=== PATIENT | male | born 1950 | race Caucasian/White ===

== ENCOUNTER 2017-06-01 21:27 | Emergency (ER) | payer OTHER, MEDICAID ==
[~2017-06-01] VITALS: Ht 170.2 cm; Wt 95.3 kg
[2017-06-01] MEDS ORDERED: ALBUTEROL SULF 2.5 MG/0.5ML(0.5%) NEB SOLN NEB STA (21:43)
[2017-06-01] MEDS ORDERED: IPRATROPIUM BROM 0.5 MG/2.5ML INH SOL NEB ONE (21:45)
[2017-06-01 22:09] LABS: Basophils # (auto) 0.1 uL; Basophils % (auto) 0.8 % (0.0-2.0); CONDITION Y; DEFINITIVE SEE PRINTOUT; Eosinophils # (auto) 0.1 uL; Eosinophils % (auto) 0.6 % (0.0-7.0); Hematocrit 39.3 % (41.0-53.0); Hemoglobin 12.7 g/dL (13.5-17.5); Lymphocytes # (auto) 1.3 uL; Lymphocytes % (auto) 10.2 % (10.0-50.0); Mean Corpuscular Hgb Conc. 32.3 g/dL (32.0-36.0); Mean Corpuscular Volume 77.5 fL (80.0-100.0); Mean Platelet Volume 8.8 fL (7.4-10.4); Monocytes # (auto) 1.1 uL; Monocytes % (auto) 8.8 % (0.0-12.0); Neutrophils # (auto) 10.5 uL; Neutrophils % (auto) 79.6 % (37.0-80.0); Platelet Count (auto) 283 10^3/uL (140-450); White Blood Cell 13.1 10^3/uL (4.4-10.8)
[2017-06-01 22:15] LABS: Red Cell Distribution Width 21.1 % (11.6-16.0)
[2017-06-01] MEDS ORDERED: DILTIAZEM HCL 25 MG/5 ML VIAL IV ONE (22:15)
[2017-06-01 22:21] LABS: INR 1.11 (0.9-1.15); Partial Thromboplastin Time 28.2 sec (22.64-33.71); Prothrombin Time 12.1 sec (9.37-12.3)
[2017-06-01 22:26] LABS: Albumin 3.2 g/dL (3.4-5.0); Anion Gap 9 (5-15); Aspartate Aminotransferase 42 U/L (15-37); BUN/Creatinine Ratio 22.2; Blood Urea Nitrogen 26 mg/dL (7-18); Carbon Dioxide 26 mmol/L (21-32); Chloride 105 mmol/L (98-107); GFR African American 80 mL/min; GFR Non-African American 66 mL/min; Glucose 61 mg/dL (74-106); Magnesium 2.1 mg/dL (1.6-2.6); Potassium 4.2 mmol/L (3.5-5.1); Sodium 140 mmol/L (136-145)
[2017-06-01 22:31] LABS: Alkaline Phosphatase 120 U/L (45-117); Bilirubin, Total 1.3 mg/dL (0.2-1.0); Total Protein 7.8 g/dL (6.4-8.2)
[2017-06-01 22:33] LABS: B-Type Natriuretic Peptide 266.79 pg/mL (0-100)
[2017-06-01 22:36] LABS: Temperature: 22.7 C (20.0-25.0)
[2017-06-01 22:51] LABS: Platelet Estimate Adequate
[2017-06-01 22:52] LABS: Anisocytosis Slight; Hypochromia Slight; Ovalocytes FEW
[2017-06-01] MEDS ORDERED: DEXTROSE 10% 1,000 ML IV ONE ×2 (23:15→23:45)
[2017-06-01 23:16] LABS: Allen Test Yes; Base Excess 2.9 mmol/L (-2.0-2.0); Blood 02Sat 95.1 % (96-100); Blood COHb 1.2 % (0.5-1.5); Blood MetHb 0.3 % (0.0-1.5); HCO3 28.7 mmol/L (22-26.0); HHb 4.8 % (0.0-5.0); MODE NASAL CANNULA; O2Hb 93.7 % (94.0-97.0); PCO2 48.7 mmHg (35.0-45.0); PCO2(T) 48.7 mmHg (35.0-45.0); PO2 81.4 mmHg (80.0-100.0); PO2(T) 81.4 mmHg (80.0-100.0); Sample Type Arterial; pH 7.388 (7.350-7.450)
[2017-06-01] MEDS ORDERED: DEXTROSE 50% SYRINGE 50 ML IV ONE (23:16)
[2017-06-01] MEDS ORDERED: DEXTROSE (50%) 50ML SYRG IV ONE (23:45)
[2017-06-01] MEDS ORDERED: ENALAPRILAT 1.25 MG/ML-1ML VIAL IV ONE (23:45)
[2017-06-01] MEDS ORDERED: FUROSEMIDE 20 MG/2 ML VIAL IV ONE (23:45)
[2017-06-02 03:05] VITALS: BP 107/66
[2017-06-02] MEDS ORDERED: DEXTROSE (25%) 10 ML SYRG IV ONE (03:15)
== END 2017-06-02 00:30 | disposition short-term general hospital (02) ==
LOC: EDBD 21:27 → ER 21:33
DX: I48.91 Unspecified atrial fibrillation (principal); E11.649 Type 2 diabetes mellitus with hypoglycemia without coma; I11.0 Hypertensive heart disease with heart failure; I50.9 Heart failure, unspecified; E11.9 Type 2 diabetes mellitus without complications
CPT/HCPCS: 36415; 36600; 71010; 80053; 82805; 82962; 83735; 83880; 84484; 85025; 85610; 85730; 93005; 94640; 96361; 96374; 96375; 96376; 99285; J1940; J7042

== ENCOUNTER 2018-01-14 08:32 | Emergency (ER) | payer OTHER, MEDICAID ==
[~2018-01-14] VITALS: Ht 170.2 cm; Wt 90.7 kg
[2018-01-14] MEDS ORDERED: ALBUTEROL SULF 2.5 MG/0.5ML(0.5%) NEB SOLN NEB ONE (09:00)
[2018-01-14] MEDS ORDERED: IPRATROPIUM BROM 0.5 MG/2.5ML INH SOL NEB ONE (09:00)
[2018-01-14] MEDS ORDERED: methylPREDNISolone SOD SUCC 125 MG/2 ML VL IV ONE (09:00)
[2018-01-14] MEDS ORDERED: FUROSEMIDE 40 MG/4 ML VIAL IV ONE (09:00)
[2018-01-14 09:30] LABS: Basophils # (auto) 0.1 uL; Eosinophils # (auto) 0 uL; Eosinophils % (auto) 0.1 % (0.0-7.0); Mean Corpuscular Hemoglobin 24.9 pg (28.0-32.0); Monocytes # (auto) 0.8 uL; Monocytes % (auto) 7.6 % (0.0-12.0); Neutrophils # (auto) 8.8 uL; White Blood Cell 10.1 10^3/uL (4.4-10.8)
[2018-01-14 09:32] LABS: Basophils % (auto) 0.5 % (0.0-2.0); Hematocrit 40.7 % (41.0-53.0); Lymphocytes # (auto) 0.5 uL; Lymphocytes % (auto) 4.7 % (10.0-50.0); Mean Corpuscular Hgb Conc. 31.8 g/dL (32.0-36.0); Mean Corpuscular Volume 78.1 fL (80.0-100.0); Neutrophils % (auto) 87.1 % (37.0-80.0); Platelet Count (auto) 260 10^3/uL (140-450); Red Blood Cells 5.21 10^6/uL (4.5-5.90)
[2018-01-14 09:35] LABS: Red Cell Distribution Width 20.7 % (11.8-14.3)
[2018-01-14 09:51] LABS: Alanine Aminotransferase 29 U/L (16-61); Albumin 3.3 g/dL (3.4-5.0); Alkaline Phosphatase 138 U/L (45-117); Anion Gap 8 (5-15); Aspartate Aminotransferase 30 U/L (15-37); BUN/Creatinine Ratio 17.6; Bilirubin, Total 1.4 mg/dL (0.2-1.0); Blood Urea Nitrogen 21 mg/dL (7-18); Calcium 8.3 mg/dL (8.5-10.1); Carbon Dioxide 26 mmol/L (21-32); Chloride 98 mmol/L (98-107); GFR African American 79 mL/min; GFR Non-African American 65 mL/min; Glucose 304 mg/dL (74-106); Magnesium 2.3 mg/dL (1.6-2.6); Potassium 4.5 mmol/L (3.5-5.1); Sodium 132 mmol/L (136-145); Total Protein 8.2 g/dL (6.4-8.2)
[2018-01-14 10:21] LABS: Urine Bacteria FEW /hpf (None Seen); Urine Blood TRACE /uL (Negative); Urine Hyaline Cast FEW /lpf (0 - 2); Urine Specific Gravity 1.017 (1.001-1.035); Urine WBC 1 /hpf (0 - 3)
[2018-01-14] MEDS ORDERED: PIPERACILLIN-TAZOB 3.375GM 50 ML IV ONE (11:15)
[2018-01-14] MEDS ORDERED: VANCOMYCIN PER PHARMACY 0 MG IV SCH (11:15)
[2018-01-14] MEDS ORDERED: VANCOMYCIN 1GM/250ML 250 ML IV SCH (12:00)
[2018-01-14 14:40] VITALS: BP 116/65
== END 2018-01-14 16:30 | disposition short-term general hospital (02) ==
LOC: EDBD 08:32 → ER 08:32
DX: I11.0 Hypertensive heart disease with heart failure (principal); I50.9 Heart failure, unspecified; I48.91 Unspecified atrial fibrillation; J44.9 Chronic obstructive pulmonary disease, unspecified; E11.9 Type 2 diabetes mellitus without complications; I25.2 Old myocardial infarction; Z98.61 Coronary angioplasty status
CPT/HCPCS: 36415; 36600; 51702; 71045; 80053; 81001; 82805; 83605; 83735; 83880; 84484; 85025; 87040; 93005; 94644; 94660; 96365; 96366; 96368; 96375; 99291; J1940; J2543; J2930; J3370

== ENCOUNTER 2024-02-26 01:58 | Emergency (ER) | payer OTHER, MEDICAID ==
[~2024-02-26] VITALS: Ht 172.7 cm; Wt 111.5 kg
[~2024-02-26 01:58] MED LIST: ATOR40TA52 PO; FLUT500M2 INH; FURO40TA4 PO; HYDR-4833 PO; LISI2.5T47 PO; NIC21P TOP; PANT40TA2 PO
[2024-02-26 03:10] LABS: Basophils # (auto) 0.1 10 ^3/uL (0-0.2); Basophils % (auto) 1.4 % (0.0-2.0); Eosinophils # (auto) 0.1 10 ^3/uL (0-0.8); Hemoglobin 10.1 g/dL (13.5-17.5); Lymphocytes # (auto) 0.6 10 ^3/uL (0.4-5.4); Lymphocytes % (auto) 9.9 % (10.0-50.0); Mean Corpuscular Hemoglobin 27.4 pg (28.0-32.0); Mean Corpuscular Hgb Conc. 32.6 g/dL (32.0-36.0); Mean Corpuscular Volume 83.9 fL (80.0-100.0); Monocytes # (auto) 0.8 10 ^3/uL (0-1.3); Monocytes % (auto) 12.3 % (0.0-12.0); Neutrophils # (auto) 4.9 10 ^3/uL (1.6-8.6); Neutrophils % (auto) 75.4 % (37.0-80.0); Red Blood Cells 3.69 10^6/uL (4.5-5.90); White Blood Cell 6.5 10^3/uL (4.4-10.8)
[2024-02-26 03:13] LABS: Red Cell Distribution Width 22.8 % (11.8-14.3)
[2024-02-26 03:18] LABS: Chloride 96 mmol/L (98-107); Potassium 3.1 mmol/L (3.5-5.1); Sodium 134 mmol/L (136-145)
[2024-02-26 03:19] LABS: Anion Gap 10 (5-15); Calcium 9.3 mg/dL (8.7-10.4); Carbon Dioxide 28 mmol/L (20-30)
[2024-02-26 03:24] LABS: BUN/Creatinine Ratio 12.7 (10.0-20.0); Blood Urea Nitrogen 18 mg/dL (9-23); Glucose 123 mg/dL (74-106)
[2024-02-26] MEDS: NITROGLYCERIN 0.4MG/HR TOPICAL PATCH TD ONE (04:31)
[2024-02-26] MEDS: POTASSIUM CHL 20 Meq TABLET PO ONE (04:37)
[2024-02-26] MEDS: FUROSEMIDE 100 MG/10ML VIAL IV ONE (05:05)
[2024-02-26 05:11] VITALS: PULSE 108; RESP 12; O2SAT 93
[2024-02-26 10:25] VITALS: BP 97/63; PULSE 105; RESP 14; TEMP 97.6; O2SAT 95
== END 2024-02-26 10:25 | disposition short-term general hospital (02) ==
LOC: ER 01:58
DX: R60.1 Generalized edema (principal); I11.0 Hypertensive heart disease with heart failure; I50.9 Heart failure, unspecified; E11.9 Type 2 diabetes mellitus without complications; N50.89 Other specified disorders of the male genital organs; I48.91 Unspecified atrial fibrillation; E87.6 Hypokalemia
CPT/HCPCS: 36415; 71045; 80048; 83880; 84484; 85025; 93005; 96374; 99291; J1940

== ENCOUNTER 2024-03-26 01:41 | Emergency (ER) | payer OTHER, MEDICAID ==
[~2024-03-26] VITALS: Ht 177.8 cm; Wt 100.0 kg
[2024-03-26 02:15] VITALS: PULSE 71; RESP 18; O2SAT 98
[2024-03-26 02:32] LABS: Eosinophils # (auto) 0.1 10 ^3/uL (0-0.8); Hematocrit 31.6 % (41.0-53.0); Hemoglobin 10.2 g/dL (13.5-17.5); Lymphocytes # (auto) 0.7 10 ^3/uL (0.4-5.4); Mean Corpuscular Hgb Conc. 32.4 g/dL (32.0-36.0); Neutrophils # (auto) 5.7 10 ^3/uL (1.6-8.6); White Blood Cell 7.6 10^3/uL (4.4-10.8)
[2024-03-26 02:33] LABS: Basophils # (auto) 0.1 10 ^3/uL (0-0.2); Basophils % (auto) 1.7 % (0.0-2.0); Eosinophils % (auto) 0.8 % (0.0-7.0); Lymphocytes % (auto) 9.4 % (10.0-50.0); Mean Corpuscular Hemoglobin 26.9 pg (28.0-32.0); Mean Corpuscular Volume 83.2 fL (80.0-100.0); Monocytes % (auto) 13.4 % (0.0-12.0); Neutrophils % (auto) 74.7 % (37.0-80.0)
[2024-03-26 02:43] LABS: Chloride 93 mmol/L (98-107); Potassium 3.1 mmol/L (3.5-5.1); Sodium 132 mmol/L (136-145)
[2024-03-26 02:44] LABS: Anion Gap 7 (5-15); Calcium 9.7 mg/dL (8.7-10.4); Carbon Dioxide 32 mmol/L (20-30)
[2024-03-26 02:49] LABS: BUN/Creatinine Ratio 23.2 (10.0-20.0); Blood Urea Nitrogen 29 mg/dL (9-23); Glucose 214 mg/dL (74-106)
[2024-03-26] MEDS: FLEET ENEMA(ADULT) 135 ML PR ONE (03:50)
[2024-03-26] MEDS ORDERED: PEGSOL11 OR (04:13)
[2024-03-26 07:23] VITALS: PULSE 119; RESP 19; O2SAT 91
[2024-03-26 08:06] VITALS: BP 111/55; PULSE 105; RESP 22; TEMP 98; O2SAT 98
== END 2024-03-26 08:25 | disposition home or self-care (01) ==
LOC: ER 01:41 → EDBD 01:41 → ER 08:25
DX: I50.9 Heart failure, unspecified (principal); I11.0 Hypertensive heart disease with heart failure; I48.91 Unspecified atrial fibrillation; K59.00 Constipation, unspecified; R33.9 Retention of urine, unspecified; R60.1 Generalized edema; J44.9 Chronic obstructive pulmonary disease, unspecified; I25.2 Old myocardial infarction; Z98.890 Other specified postprocedural states; Z79.899 Other long term (current) drug therapy
CPT/HCPCS: 36415; 51702; 74176; 80048; 83880; 84484; 85025; 93005

== ENCOUNTER 2024-04-08 16:14 | Inpatient (IN) | payer OTHER, MEDICAID ==
[2024-04-08] VITALS (8 sets, daily range): BP systolic 96–109; BP diastolic 40–52; PULSE 118–149; RESP 17–23; TEMP 98–98.5; O2SAT 97–99
[~2024-04-08] VITALS: Ht 162.6 cm; Wt 89.0 kg
[~2024-04-08 16:14] MED LIST changes: +PEGSOL11 OR
[2024-04-08] MEDS: dilTIAZem 25 MG/5 ML VIAL IV ONE (17:02)
[2024-04-08 17:14] LABS: Chloride 98 mmol/L (98-107); Potassium 3.7 mmol/L (3.5-5.1); Sodium 134 mmol/L (136-145)
[2024-04-08 17:15] LABS: Anion Gap 5 (5-15); Calcium 8.8 mg/dL (8.5-10.1); Carbon Dioxide 31 mmol/L (20-30)
[2024-04-08 17:20] LABS: BUN/Creatinine Ratio 43.7 (10.0-20.0); Blood Urea Nitrogen 52 mg/dL (9-23); Glucose 347 mg/dL (74-106)
[2024-04-08 17:46] LABS: COVID19 ANTIGEN SOFIA FIA NEGATIVE (NEGATIVE)
[2024-04-08 17:53] LABS: Basophils # (auto) 0.1 10 ^3/uL (0-0.2); Eosinophils # (auto) 0 10 ^3/uL (0-0.8); Eosinophils % (auto) 0.4 % (0.0-7.0); Neutrophils # (auto) 7.9 10 ^3/uL (1.6-8.6)
[2024-04-08 17:55] LABS: Hematocrit 17.4 % (41.0-53.0); Lymphocytes # (auto) 1.3 10 ^3/uL (0.4-5.4); Lymphocytes % (auto) 12.3 % (10.0-50.0); Mean Corpuscular Hemoglobin 26.3 pg (28.0-32.0); Mean Corpuscular Hgb Conc. 31.7 g/dL (32.0-36.0); Mean Corpuscular Volume 82.9 fL (80.0-100.0); Monocytes # (auto) 1.1 10 ^3/uL (0-1.3); Monocytes % (auto) 10.2 % (0.0-12.0); Neutrophils % (auto) 76.1 % (37.0-80.0); Nucleated Red Blood Cells % 0.1 %; White Blood Cell 10.4 10^3/uL (4.4-10.8)
[2024-04-08 17:59] LABS: Red Cell Distribution Width 20.2 % (11.8-14.3)
[2024-04-08 18:01] LABS: Hemoglobin 5.5 g/dL (13.5-17.5)
[2024-04-08 18:30] LABS: Platelet Estimate Adequate
[2024-04-08] MEDS: DIGOXIN (250MCG/ML) 2 ML AMPULE IV ONE (19:27)
[2024-04-08] MEDS: NOREPINEPHRINE 8 MG/250ML KIT 250 ML IV SCH (19:45)
[2024-04-08] MEDS ORDERED: MORPHINE SULFATE INJ 2 MG/ml SYRG IV PRN (21:45)
[2024-04-08] MEDS ORDERED: DEXTROSE (50%) 50ML SYRG IV PRN (21:45)
[2024-04-08] MEDS ORDERED: NITROGLYCERIN 0.4 MG SL TAB SL PRN (21:45)
[2024-04-08 23:44] LABS: Urine Bacteria FEW /hpf (None Seen); Urine Blood Negative /uL (Negative); Urine Clarity Clear (Clear); Urine Color Light-Yellow (Yellow); Urine Protein, UAD Negative (Negative); Urine Specific Gravity 1.015 (1.001-1.035); Urine Urobilinogen Normal (Negative); Urine WBC 17 /hpf (0 - 3); Urine WBC Clumps PRESENT /hpf (None Seen)
[2024-04-09 00:03] VITALS: BP 103/46; PULSE 125; RESP 20; TEMP 98.2
[2024-04-09] MEDS: InsuLIN REG 1unit/0.01ml Soln (100units/ml) SC SCH ×2 (01:27→17:39)
[2024-04-09 02:27] VITALS: BP 92/35; PULSE 113; RESP 19; TEMP 98.3
[2024-04-09] MEDS: PANTOPRAZOLE 40mg/50ML NS AE 50 ML IV SCH (02:32)
[2024-04-09 06:08] LABS: Basophils # (auto) 0.1 10 ^3/uL (0-0.2); Eosinophils # (auto) 0.1 10 ^3/uL (0-0.8); Eosinophils % (auto) 0.5 % (0.0-7.0); Hematocrit 23.3 % (41.0-53.0); Hemoglobin 7.5 g/dL (13.5-17.5); Lymphocytes % (auto) 8.7 % (10.0-50.0); Mean Corpuscular Hemoglobin 26.9 pg (28.0-32.0); Monocytes # (auto) 1.3 10 ^3/uL (0-1.3); Neutrophils # (auto) 9.3 10 ^3/uL (1.6-8.6); Neutrophils % (auto) 78.8 % (37.0-80.0); Red Blood Cells 2.78 10^6/uL (4.5-5.90); Red Cell Distribution Width 18.2 % (11.8-14.3); White Blood Cell 11.8 10^3/uL (4.4-10.8)
[2024-04-09 06:37] LABS: Alanine Aminotransferase 16 U/L (7-40); Albumin 3.3 g/dL (3.2-4.8); Alkaline Phosphatase 153 U/L (46-116); Anion Gap 9 (5-15); Aspartate Aminotransferase 22 U/L (13-40); BUN/Creatinine Ratio 41.3 (10.0-20.0); Bilirubin, Total 1.6 mg/dL (0.2-1.0); Blood Urea Nitrogen 45 mg/dL (9-23); Calcium 9.1 mg/dL (8.7-10.4); Carbon Dioxide 28 mmol/L (20-30); Chloride 98 mmol/L (98-107); Glucose 265 mg/dL (74-106); Potassium 3.7 mmol/L (3.5-5.1); Sodium 135 mmol/L (136-145); Total Protein 6.7 g/dL (5.7-8.2)
[2024-04-09 07:51] VITALS: PULSE 108; RESP 23; O2SAT 92
[2024-04-09] MEDS: SODIUM CHLORIDE 0.9% 1,000 ML IV SCH (11:15)
[2024-04-09] MEDS ORDERED: MORPHINE SULFATE INJ 2 MG/ml SYRG IV PRN (13:00)
[2024-04-09 13:27] LABS: INR 1.18 (0.9-1.15); Partial Thromboplastin Time 26.5 SEC (24.5-34.5); Prothrombin Time 12.4 sec (9.3-11.8)
[2024-04-09 14:49] LABS: Urine Bacteria None Seen /hpf (None Seen)
[2024-04-09 15:02] LABS: Urine Blood 2+ /uL (Negative); Urine Clarity Clear (Clear); Urine Color Light-Yellow (Yellow); Urine Protein, UAD TRACE (Negative); Urine Specific Gravity 1.008 (1.001-1.035); Urine Urobilinogen Normal (Negative); Urine WBC 19 /hpf (0 - 3); Urine pH 6.5 (5.0-9.0)
[2024-04-09] MEDS ORDERED: VANCOMYCIN PER PHARMACY 0 MG IV SCH (15:15)
[2024-04-09] MEDS ORDERED: DEXTROSE (50%) 50ML SYRG IV PRN (15:15)
[2024-04-09 16:49] LABS: Thyroid Stimulating Hormone 1.41 uIU/mL (0.55-4.78)
[2024-04-09] MEDS: HYDROcodone-ACET 10/325MG TAB PO PRN (17:05)
[2024-04-09] MEDS: CEFEPIME 1GM/ 50ML 50 ML IV ONE (17:06)
[2024-04-09 17:19] LABS: Magnesium 1.7 mg/dL (1.6-2.6)
[2024-04-09 17:20] LABS: Phosphorus 3.3 mg/dL (2.4-5.1)
[2024-04-09] MEDS: ACCU-CHEK COMFORT CURVE STRIP VI SCH ×2 (17:30)
[2024-04-09] MEDS: LIDOCAINE 1% (LOCAL ANESTH.) PF 5ml SDV ID ONE (17:30)
[2024-04-09] MEDS: SODIUM CHLORIDE 0.9% 500 ML IV ONE (18:29)
[2024-04-09 19:45] VITALS: PULSE 125; RESP 18; O2SAT 95
[2024-04-09] MEDS: AMIODARONE 450mg/250ml AE 250 ML IV SCH (19:45)
[2024-04-09] MEDS: ONDANSETRON HCL 4 MG/2 ML VIAL IV PRN (20:12)
[2024-04-09] MEDS: AMIODARONE BOLUS KIT 100 ML IV ONE (20:22)
[2024-04-09] MEDS: SODIUM CHLOR 0.9% PF (SALINE LOCK) 10ML VIAL/SYR IV SCH (21:44)
[2024-04-09] MEDS: CEFEPIME 1GM/ 50ML 50 ML IV SCH (21:53)
[2024-04-10] MEDS: VANCOMYCIN 1GM/200ML 200 ML IV ONE (04:00)
[2024-04-10] MEDS: AMIODARONE 450mg/250ml AE 250 ML IV SCH (04:30)
[2024-04-10 05:23] LABS: Basophils # (auto) 0.1 10 ^3/uL (0-0.2); Eosinophils # (auto) 0.1 10 ^3/uL (0-0.8); Lymphocytes # (auto) 0.4 10 ^3/uL (0.4-5.4); Monocytes # (auto) 0.7 10 ^3/uL (0-1.3); Nucleated Red Blood Cells % 0.2 %
[2024-04-10 05:24] LABS: Basophils % (auto) 0.9 % (0.0-2.0); Eosinophils % (auto) 0.6 % (0.0-7.0); Hematocrit 22.8 % (41.0-53.0); Hemoglobin 7.3 g/dL (13.5-17.5); Lymphocytes % (auto) 3.5 % (10.0-50.0); Mean Corpuscular Hemoglobin 27.9 pg (28.0-32.0); Mean Corpuscular Hgb Conc. 32.1 g/dL (32.0-36.0); Mean Corpuscular Volume 86.9 fL (80.0-100.0); Monocytes % (auto) 6.3 % (0.0-12.0); Neutrophils # (auto) 9.6 10 ^3/uL (1.6-8.6); Neutrophils % (auto) 88.7 % (37.0-80.0); Red Blood Cells 2.62 10^6/uL (4.5-5.90); Red Cell Distribution Width 18.6 % (11.8-14.3); White Blood Cell 10.8 10^3/uL (4.4-10.8)
[2024-04-10 05:35] LABS: Alanine Aminotransferase 16 U/L (7-40); Albumin 3.1 g/dL (3.2-4.8); Alkaline Phosphatase 144 U/L (46-116); Anion Gap 7 (5-15); Aspartate Aminotransferase 24 U/L (13-40); BUN/Creatinine Ratio 24.5 (10.0-20.0); Calcium 8.2 mg/dL (8.5-10.1); Carbon Dioxide 26 mmol/L (20-30); Chloride 99 mmol/L (98-107); Magnesium 1.5 mg/dL (1.6-2.6); Potassium 3.6 mmol/L (3.5-5.1); Sodium 132 mmol/L (136-145)
[2024-04-10 05:36] LABS: Bilirubin, Total 1.3 mg/dL (0.2-1.0); Phosphorus 2.5 mg/dL (2.4-5.1); Total Protein 6.3 g/dL (5.7-8.2)
[2024-04-10 05:44] LABS: Blood Urea Nitrogen 23 mg/dL (9-23); Glucose 427 mg/dL (74-106)
[2024-04-10] MEDS: IOHEXOL 350 MG/ML 100ML IJ ONE (09:33)
[2024-04-10 09:37] LABS: COVID19 ANTIGEN SOFIA FIA NEGATIVE (NEGATIVE)
[2024-04-10 10:05] LABS: Rapid Influenza A Negative (Negative); Rapid Influenza B Negative (Negative)
[2024-04-10] MEDS: SODIUM FERR GLUC 62.5MG/5ML 110 ML IV SCH (16:04)
[2024-04-10] MEDS: SILDENAFIL CITRATE 20 MG TAB PO SCH (16:16)
[2024-04-10 19:30] VITALS: PULSE 112; RESP 30; O2SAT 95
[2024-04-10] MEDS: VANCOMYCIN 750mg/150ml 150 ML IV SCH (21:10)
[2024-04-10 22:10] LABS: Hematocrit 19.2 % (41.0-53.0)
[2024-04-11 05:07] LABS: Basophils # (auto) 0.1 10 ^3/uL (0-0.2); Eosinophils # (auto) 0.1 10 ^3/uL (0-0.8); Lymphocytes # (auto) 0.9 10 ^3/uL (0.4-5.4); Monocytes # (auto) 1.2 10 ^3/uL (0-1.3)
[2024-04-11 05:10] LABS: Basophils % (auto) 1.2 % (0.0-2.0); Eosinophils % (auto) 1.7 % (0.0-7.0); Hematocrit 21.3 % (41.0-53.0); Lymphocytes % (auto) 11.1 % (10.0-50.0); Mean Corpuscular Hemoglobin 26.7 pg (28.0-32.0); Mean Corpuscular Hgb Conc. 30.9 g/dL (32.0-36.0); Mean Corpuscular Volume 86.5 fL (80.0-100.0); Monocytes % (auto) 14.1 % (0.0-12.0); Neutrophils # (auto) 6.1 10 ^3/uL (1.6-8.6); Neutrophils % (auto) 71.9 % (37.0-80.0); Nucleated Red Blood Cells % 0.1 %; Red Blood Cells 2.47 10^6/uL (4.5-5.90); White Blood Cell 8.5 10^3/uL (4.4-10.8)
[2024-04-11 05:12] LABS: Alanine Aminotransferase 11 U/L (7-40); Albumin 2.9 g/dL (3.2-4.8); Alkaline Phosphatase 127 U/L (46-116); Anion Gap 5 (5-15); Aspartate Aminotransferase 18 U/L (13-40); BUN/Creatinine Ratio 18.3 (10.0-20.0); Blood Urea Nitrogen 17 mg/dL (9-23); Calcium 7.7 mg/dL (8.7-10.4); Carbon Dioxide 24 mmol/L (20-30); Chloride 102 mmol/L (98-107); Glucose 341 mg/dL (74-106); Magnesium 1.4 mg/dL (1.6-2.6); Potassium 3.4 mmol/L (3.5-5.1); Sodium 131 mmol/L (136-145)
[2024-04-11 05:13] LABS: Bilirubin, Total 0.9 mg/dL (0.2-1.0)
[2024-04-11 05:17] LABS: Hemoglobin 6.6 g/dL (13.5-17.5)
[2024-04-11 05:23] LABS: INR 1.31 (0.9-1.15); Partial Thromboplastin Time 32.9 SEC (24.5-34.5); Prothrombin Time 13.6 sec (9.3-11.8)
[2024-04-11 05:45] VITALS: BP 104/55; PULSE 122; RESP 13; TEMP 97.8
[2024-04-11 06:00] VITALS: BP 104/56; PULSE 104; RESP 13; TEMP 97.9
[2024-04-11 07:40] VITALS: PULSE 102; RESP 16; O2SAT 94
[2024-04-11 07:50] VITALS: BP 106/52; PULSE 102; RESP 14; TEMP 98
[2024-04-11 10:35] LABS: Hematocrit 23.6 % (41.0-53.0); Hemoglobin 7.3 g/dL (13.5-17.5)
[2024-04-11] MEDS ORDERED: HYDR-4798 PO (10:36)
[2024-04-11] MEDS ORDERED: POTA-36 PO (10:42)
[2024-04-11] MEDS ORDERED: METO2.5T PO (10:42)
[2024-04-11] MEDS ORDERED: FERR325T20 PO (10:42)
[2024-04-11] MEDS ORDERED: METF-370 PO (10:42)
[2024-04-11] MEDS ORDERED: GABA-1250 PO (10:42)
[2024-04-11] MEDS ORDERED: DABI75CA5 PO (10:42)
[2024-04-11] MEDS ORDERED: EMPA1TAB3 PO (10:42)
[2024-04-11] MEDS ORDERED: BUDE1AER16 IN (10:46)
[2024-04-11] MEDS ORDERED: ALBU108A5 IN (10:46)
[2024-04-11] MEDS ORDERED: MORPHINE SULFATE INJ 2 MG/ml SYRG IV PRN (13:45)
[2024-04-11 19:30] VITALS: PULSE 107; PULSE 112; RESP 16; RESP 30; O2SAT 95
[2024-04-11] MEDS: AMIODARONE HCL (50 MG/ ML) 3 ML VIAL IV ONE (23:23)
[2024-04-11] MEDS: AMIODARONE 450mg/250ml AE 250 ML IV SCH (23:30)
[2024-04-12 04:13] LABS: Basophils # (auto) 0.1 10 ^3/uL (0-0.2); Basophils % (auto) 0.9 % (0.0-2.0); Eosinophils # (auto) 0.1 10 ^3/uL (0-0.8); Eosinophils % (auto) 1.1 % (0.0-7.0); Hematocrit 23.8 % (41.0-53.0); Hemoglobin 7.7 g/dL (13.5-17.5); Lymphocytes % (auto) 10.2 % (10.0-50.0); Mean Corpuscular Hemoglobin 27.9 pg (28.0-32.0); Mean Corpuscular Hgb Conc. 32.3 g/dL (32.0-36.0); Mean Corpuscular Volume 86.5 fL (80.0-100.0); Monocytes # (auto) 1.3 10 ^3/uL (0-1.3); Monocytes % (auto) 13.8 % (0.0-12.0); Neutrophils # (auto) 6.9 10 ^3/uL (1.6-8.6); Nucleated Red Blood Cells % 0.2 %; Red Blood Cells 2.75 10^6/uL (4.5-5.90); Red Cell Distribution Width 18.8 % (11.8-14.3); White Blood Cell 9.4 10^3/uL (4.4-10.8)
[2024-04-12 04:31] LABS: Alanine Aminotransferase 10 U/L (7-40); Alkaline Phosphatase 141 U/L (46-116); Anion Gap 2 (5-15); Aspartate Aminotransferase 14 U/L (13-40); Blood Urea Nitrogen 17 mg/dL (9-23); Calcium 7.6 mg/dL (8.5-10.1); Carbon Dioxide 28 mmol/L (20-30); Chloride 98 mmol/L (98-107); Magnesium 1.5 mg/dL (1.6-2.6); Potassium 3.8 mmol/L (3.5-5.1); Sodium 128 mmol/L (136-145)
[2024-04-12 04:32] LABS: Bilirubin, Total 0.8 mg/dL (0.2-1.0)
[2024-04-12 04:55] LABS: Glucose 456 mg/dL (74-106)
[2024-04-12] MEDS ORDERED: NALOXONE HCL 0.4 MG/ML VIAL ONE (08:13)
[2024-04-12] MEDS ORDERED: FLUMAZENIL 0.1 MG/ML INJ 10ML MDV IV ONE (08:15)
[2024-04-12 10:11] LABS: Hemoglobin 7.7 g/dL (13.5-17.5)
[2024-04-12 10:13] LABS: Hematocrit 23.9 % (41.0-53.0)
[2024-04-12] MEDS: VANCOMYCIN 750 MG in SODIUM CHL 0.9% 250 ML IV SCH (12:48)
[2024-04-12] MEDS: SILDENAFIL CITRATE 20 MG TAB PO SCH (14:00)
[2024-04-12] MEDS: MAGNESIUM SULFATE 1GM/100ML 100 ML IV SCH (14:00)
[2024-04-12] MEDS ORDERED: DEXTROSE (50%) 50ML SYRG IV PRN (14:00)
[2024-04-12] MEDS: InsuLIN REG 1unit/0.01ml Soln (100units/ml) SC SCH (17:00)
[2024-04-12] MEDS: AMIODARONE HCL 200 MG TAB PO ONE (18:09)
[2024-04-12] MEDS: ACCU-CHEK COMFORT CURVE STRIP VI SCH (18:18)
[2024-04-12 20:25] VITALS: BP 99/40; PULSE 76; RESP 14; TEMP 97.2; O2SAT 95
[2024-04-12] MEDS ORDERED: InsuLIN REG 1unit/0.01ml Soln (100units/ml) SC SCH (22:00)
[2024-04-13] MEDS ORDERED: AMIODARONE HCL 200 MG TAB PO SCH (10:00)
== END 2024-04-12 20:01 | disposition short-term general hospital (02) | DRG 871 ==
LOC: EDSEX 16:14 → ER 16:14 → EDBD 16:14 → TELE 21:44
PROVIDERS: ADMIT Internal Medicine Pulmonary Disease; ATTEND Internal Medicine
PROC: 30233N1 Transfusion of Nonautologous Red Blood Cells into Peripheral Vein, Percutaneous Approach (ICD-10-PCS; principal; 2024-04-08)
PROC: 02HV33Z Insertion of Infusion Device into Superior Vena Cava, Percutaneous Approach (ICD-10-PCS; 2024-04-09)
PROC: B548ZZA Ultrasonography of Superior Vena Cava, Guidance (ICD-10-PCS; 2024-04-09)
DX: A41.51 Sepsis due to Escherichia coli [E. coli] (principal); I21.A1 Myocardial infarction type 2; R65.21 Severe sepsis with septic shock; K27.4 Chronic or unspecified peptic ulcer, site unspecified, with hemorrhage; N39.0 Urinary tract infection, site not specified; D62 Acute posthemorrhagic anemia; I48.20 Chronic atrial fibrillation, unspecified; I48.92 Unspecified atrial flutter; I50.32 Chronic diastolic (congestive) heart failure; J96.11 Chronic respiratory failure with hypoxia; Z20.822 Contact with and (suspected) exposure to COVID-19; K82.8 Other specified diseases of gallbladder; E11.9 Type 2 diabetes mellitus without complications; K40.20 Bilateral inguinal hernia, without obstruction or gangrene, not specified as recurrent; E83.42 Hypomagnesemia; K80.20 Calculus of gallbladder without cholecystitis without obstruction; I11.0 Hypertensive heart disease with heart failure; I25.10 Atherosclerotic heart disease of native coronary artery without angina pectoris; I27.20 Pulmonary hypertension, unspecified; J44.9 Chronic obstructive pulmonary disease, unspecified; Z98.61 Coronary angioplasty status; Z87.891 Personal history of nicotine dependence; Z79.4 Long term (current) use of insulin; Z79.899 Other long term (current) drug therapy
CPT/HCPCS: 36415; 36430; 36569; 71045; 71250; 74176; 76700; 80048; 80053; 80202; 81001; 82270; 82962; 82977; 83036; 83605; 83615; 83735; 83880; 84100; 84443; 84484; 85014; 85018; 85025; 85379; 85610; 85730; 86850; 86900; 86901; 86920; 87040; 87081; 87086; 87088; 87186; 87426; 87804; 93005; 93306; 96374; 96375; 99291; G0378; J1815; J2405